=== PATIENT | female | born 1985 | race Caucasian/White ===

== ENCOUNTER → 2019-11-15 | Outpatient (CLI) | payer MEDICAID ==
--- NOTE | 2019-11-15 13:23 | REP ---
Left ankle series: Four views. History: Pain left ankle. Comparison study January 29, 2016. Findings: Four views left ankle demonstrate moderate soft tissue swelling about the lateral malleolus. There is some anterior soft tissue swelling. No tibial fracture is seen. There is minimal tibiotalar spurring and medially. There is plantar and Achilles calcaneal spurring. The previously noted transverse lateral malleolar fracture has healed. I suspect a tiny avulsion chip fracture from the tip of the lateral malleolus however on today's oblique radiograph. This is only seen on one view. Impression: Moderate anterolateral soft-tissue swelling. Suspect acute nondisplaced avulsion chip fracture from the lateral malleolar tip. Previously noted lateral malleolar fracture has healed. There are heel spurs. No other fracture. Electronically Signed by Percy Calvo MD 11/15/2019 01:14 P
== END ==
LOC: M ADAMS 11:57
PROVIDERS: ATTEND Physician Assistant
DX: M25.472 Effusion, left ankle (principal); M25.572 Pain in left ankle and joints of left foot

== ENCOUNTER 2020-09-16 11:03 | Emergency (ER) | payer OTHER, SELFPAY ==
[~2020-09-16] VITALS: Ht 165.1 cm; Wt 101.7 kg
[2020-09-16] MEDS ORDERED: NS 1,000 ML IV ONE (11:40)
[2020-09-16] MEDS ORDERED: KETOROLAC 30 MG/ML 1ML VIAL IV ONE (11:40)
[2020-09-16] MEDS ORDERED: AMPICILLIN SOD/SULBACTAM SOD 3 GM in D5W MINI-BAG PLUS 100 ML IV ONE (11:40)
[2020-09-16 12:05] LABS: BASO # 0.1 10^3/uL (0.0-0.2); BASO % 0.5 % (0.0-1.0); EOS # 0.2 10^3/uL (0.0-0.5); EOS % 1.8 % (0.0-3.0); HEMATOCRIT 43.9 % (36.0-47.0); HEMOGLOBIN 14.9 g/dl (12.0-15.5); LYMPH # 1.9 10^3/uL (1.5-5.0); LYMPH % 15.3 % (24.0-44.0); MEAN CORPUSCULAR HEMOGLOBIN 31.3 pg (27.0-33.0); MEAN CORPUSCULAR HGB CONC 33.9 g/dl (32.0-36.5); MEAN CORPUSCULAR VOLUME 92.2 fl (80.0-96.0); MONO # 0.9 10^3/uL (0.0-0.8); MONO % 7.4 % (2.0-8.0); NEUTROPHILS # 9.3 10^3/uL (1.5-8.5); NEUTROPHILS % 74.4 % (36.0-66.0); PLATELET COUNT, AUTOMATED 286 10^3/uL (150-450); RED BLOOD COUNT 4.76 10^6/uL (4.00-5.40); WHITE BLOOD COUNT 12.5 10^3/uL (4.0-10.0)
[2020-09-16 12:35] LABS: BLOOD UREA NITROGEN 10 MG/DL (7-18); C REACTIVE PROTEIN QUANTITATIV 6.11 MG/DL (0.00-0.30); CALCIUM LEVEL 9.5 MG/DL (8.5-10.1); CARBON DIOXIDE LEVEL 27 MEQ/L (21-32); CHLORIDE LEVEL 107 MEQ/L (98-107); CREATININE FOR GFR 0.75 MG/DL (0.55-1.30); GLOMERULAR FILTRATION RATE > 60.0 (>60); GLUCOSE, FASTING 91 MG/DL (70-100); POTASSIUM SERUM 4.1 MEQ/L (3.5-5.1); SODIUM LEVEL 139 MEQ/L (136-145)
[2020-09-16] MEDS ORDERED: BENZOCAINE 20% GEL 9GM TUBE (ANBESOL MAX STRENGTH) TOP ONE (12:50)
[2020-09-16] MEDS ORDERED: AUGM875T28 PO (13:19)
[2020-09-16 13:20] VITALS: BP 135/83
== END 2020-09-16 13:30 | disposition home or self-care (01) ==
LOC: M ED 11:03
DX: K02.9 Dental caries, unspecified (principal); K04.7 Periapical abscess without sinus; F17.210 Nicotine dependence, cigarettes, uncomplicated
CPT/HCPCS: 41800; 80048; 85025; 86140; 96361; 96365; 96375; 99284; J1885

== ENCOUNTER 2021-12-12 20:09 | Emergency (ER) | payer MEDICAID, OTHER ==
[~2021-12-12] VITALS: Ht 165.1 cm; Wt 84.1 kg
[~2021-12-12 20:09] MED LIST: AUGM875T28 PO
[2021-12-12] MEDS ORDERED: AMOX875T2 PO (23:47)
[2021-12-12] MEDS ORDERED: KETOROLAC 30 MG/ML 1ML VIAL IM ONE (23:50)
[2021-12-12] MEDS ORDERED: AUGMENTIN 875 MG TAB PO ONE (23:50)
[2021-12-13 00:23] VITALS: BP 121/65
== END 2021-12-13 00:24 | disposition home or self-care (01) ==
LOC: M ED 20:09
DX: K08.89 Other specified disorders of teeth and supporting structures (principal); F17.210 Nicotine dependence, cigarettes, uncomplicated
CPT/HCPCS: 96372; 99283; J1885